=== PATIENT | male | born 1995 | race Caucasian/White ===

== ENCOUNTER 2022-08-03 05:37 | Inpatient (IN) | payer MEDICAID ==
[~2022-08-03] VITALS: Ht 172.7 cm; Wt 70.8 kg
[2022-08-03] MEDS ORDERED: VISCOUS LIDOCAINE 2% 15 ML UDC MM ONE (07:00)
[2022-08-03] MEDS ORDERED: SODIUM CHLORIDE 0.9% 1,000 ML IV ONE (07:00)
[2022-08-03] MEDS ORDERED: ONDANSETRON HCL 4MG/2ML INJ IV ONE (07:00)
[2022-08-03] MEDS ORDERED: ACYCLOVIR 5MG/ML SYR IV ONE (07:15)
[2022-08-03 08:30] LABS: BASOPHILS % 0.5 % (0.0-2.0); EOSINOPHILS % 0.7 % (0.0-5.0); HEMATOCRIT. 52.8 % (42.0-52.0); HEMOGLOBIN. 17.9 g/dL (14.0-18.0); MEAN CORPUSCULAR HEMOGLOBIN 30.6 pg (28.0-32.0); MEAN CORPUSCULAR VOLUME 90.5 fL (80.0-94.0); MEAN PLATELET VOLUME 9.1 fl (7.4-10.4); MONOCYTES % 10.8 % (2.0-8.0); PLATELET 239 x1000/uL (130-400); RED BLOOD CELL COUNT 5.84 mill/uL (4.7-6.1); RED CELL DISTRIBUTION WIDTH 12.9 % (11.6-14.6)
[2022-08-03] MEDS ORDERED: ACYCLOVIR INJ 400 MG in DEXT 5% WATER 100 ML IV SCH (08:30)
[2022-08-03 08:40] LABS: CHLORIDE 104 mEq/L (98-107)
[2022-08-03] MEDS ORDERED: MORPHINE SULFATE 4 MG/ML CPJ (NOT FOR IM USE) IV ONE (11:15)
[2022-08-03 16:00] VITALS: BP 120/76
[2022-08-03] MEDS ORDERED: VISCOUS LIDOCAINE 2% 15 ML UDC MM PRN (16:00)
[2022-08-03] MEDS ORDERED: ONDANSETRON HCL 4MG/2ML INJ IV PRN (16:00)
[2022-08-03] MEDS: PANTOPRAZOLE SODIUM 40 MG/VIAL IV SCH (16:32)
[2022-08-03] MEDS: METHYLPREDNISOLONE SOD SUCC 40 MG/ML VIAL IV SCH (16:33)
[2022-08-03] MEDS: DEXT 5%/0.45% NACL 1000ML 1,000 ML IV SCH (17:04)
[2022-08-03 17:13] VITALS: BP 119/78
[2022-08-03 19:46] LABS: *AMPHETAMINES SCREEN URINE NEGATIVE (NEGATIVE); *BARBITURATES SCREEN URINE NEGATIVE (NEGATIVE); *BENZODIAZEPINES SCREEN URINE NEGATIVE (NEGATIVE); *COCAINE SCREEN URINE NEGATIVE (NEGATIVE); CANNABINOID URINE SCREEN NEGATIVE (NEGATIVE); METHADONE URINE SCREEN NEGATIVE (NEGATIVE); OPIATES URINE SCREEN PRESUMTIVE POSITIVE (NEGATIVE); PHENCYCLIDINE URINE SCREEN NEGATIVE (NEGATIVE)
[2022-08-03 20:00] VITALS: BP 127/64
[2022-08-03] MEDS: AMPICILLIN SOD/SULBACTAM NA 3 G in SODIUM CHLORIDE 0.9% 100 ML IV SCH (20:25)
[2022-08-03] MEDS: ACYCLOVIR INJ 500 MG in DEXT 5% WATER 100 ML IV SCH (21:46)
[2022-08-03 22:00] LABS: VITAMIN B12 SERUM 909 pg/mL (211-911)
[2022-08-04] VITALS: BP 120/68
[2022-08-04] MEDS: KETOROLAC 30MG/ML VIAL IV PRN ×3 (00:16→22:18)
[2022-08-04] MEDS: METHYLPREDNISOLONE SOD SUCC 40 MG/ML VIAL IV SCH ×3 (00:16→16:32)
[2022-08-04] MEDS: AMPICILLIN SOD/SULBACTAM NA 3 G in SODIUM CHLORIDE 0.9% 100 ML IV SCH ×4 (02:55→20:18)
[2022-08-04] MEDS: DEXT 5%/0.45% NACL 1000ML 1,000 ML IV SCH ×3 (02:55→22:19)
[2022-08-04 04:00] VITALS: BP 118/62
[2022-08-04] MEDS: ACYCLOVIR INJ 500 MG in DEXT 5% WATER 100 ML IV SCH ×3 (05:37→22:17)
[2022-08-04 07:52] VITALS: BP 134/65
[2022-08-04] MEDS: PANTOPRAZOLE SODIUM 40 MG/VIAL IV SCH (08:40)
[2022-08-04 11:46] VITALS: BP 112/68
[2022-08-04 16:03] VITALS: BP 110/70
[2022-08-04 20:00] VITALS: BP_SYST 108; BP_SYST 127; BP_DIAS 56; BP_DIAS 78
[2022-08-05] VITALS: BP 95/51
[2022-08-05] MEDS: METHYLPREDNISOLONE SOD SUCC 40 MG/ML VIAL IV SCH ×3 (01:06→16:16)
[2022-08-05] MEDS: AMPICILLIN SOD/SULBACTAM NA 3 G in SODIUM CHLORIDE 0.9% 100 ML IV SCH ×4 (03:32→20:14)
[2022-08-05] MEDS: ACYCLOVIR INJ 500 MG in DEXT 5% WATER 100 ML IV SCH ×3 (05:51→22:17)
[2022-08-05 06:08] LABS: HIV SCREEN 4G Non Reactive (Non Reactive)
[2022-08-05 07:52] VITALS: BP 107/60
[2022-08-05] MEDS: FAMOTIDINE 20MG/2ML VIAL IV SCH ×2 (08:29→22:16)
[2022-08-05] MEDS: DEXT 5%/0.45% NACL 1000ML 1,000 ML IV SCH ×2 (08:39→18:16)
[2022-08-05 11:29] VITALS: BP 109/47
[2022-08-05 14:11] LABS: BASOPHILS % 0.1 % (0.0-2.0); HEMATOCRIT. 45.3 % (42.0-52.0); HEMOGLOBIN. 15.2 g/dL (14.0-18.0); LYMPHOCYTES % 9.6 % (20.0-50.0); MEAN CORPUSCULAR HEMOGLOBIN 30.3 pg (28.0-32.0); MEAN CORPUSCULAR VOLUME 90.3 fL (80.0-94.0); MONOCYTES % 4.2 % (2.0-8.0); NEUTROPHILS % 86.1 % (40.0-76.0); PLATELET 300 x1000/uL (130-400); RED BLOOD CELL COUNT 5.02 mill/uL (4.7-6.1); RED CELL DISTRIBUTION WIDTH 12.7 % (11.6-14.6)
[2022-08-05 14:31] LABS: CHLORIDE 112 mEq/L (98-107)
[2022-08-05 16:01] VITALS: BP 120/61
[2022-08-05 20:00] VITALS: BP 108/62
[2022-08-05] MEDS ORDERED: ZOLPIDEM TARTRATE 5MG TABLET PO PRN (20:30)
[2022-08-06] VITALS: BP 108/62
[2022-08-06] MEDS: AMPICILLIN SOD/SULBACTAM NA 3 G in SODIUM CHLORIDE 0.9% 100 ML IV SCH ×3 (03:41→15:20)
[2022-08-06] MEDS: DEXT 5%/0.45% NACL 1000ML 1,000 ML IV SCH ×2 (03:42→14:00)
[2022-08-06 04:00] VITALS: BP 107/64
[2022-08-06] MEDS: ACYCLOVIR INJ 500 MG in DEXT 5% WATER 100 ML IV SCH ×2 (05:22→14:06)
[2022-08-06] MEDS: FAMOTIDINE 20MG/2ML VIAL IV SCH (08:22)
[2022-08-06] MEDS: METHYLPREDNISOLONE SOD SUCC 40 MG/ML VIAL IV SCH ×2 (08:22)
[2022-08-06] MEDS ORDERED: POTASSIUM CHLORIDE 20MEQ/PACKET PO NR (11:15)
[2022-08-06] MEDS ORDERED: AMOX1TAB16 MT (11:23)
[2022-08-06] MEDS ORDERED: VALA100044 PO (12:38)
[2022-08-06 16:00] VITALS: BP 118/65
== END 2022-08-06 17:36 | disposition home or self-care (01) | DRG 115 ==
LOC: ER 05:37 → 6EST 13:39 → ENRESERV 14:43 → 6EST 15:26
PROVIDERS: ADMIT Internal Medicine; ATTEND Internal Medicine
DX: K12.1 Other forms of stomatitis (principal); B00.1 Herpesviral vesicular dermatitis; J39.2 Other diseases of pharynx; Z20.822 Contact with and (suspected) exposure to COVID-19; K14.0 Glossitis; K05.10 Chronic gingivitis, plaque induced
CPT/HCPCS: 36415; 80048; 80305; 82607; 84145; 85025; 86592; 86694; 86695; 86696; 87389; 87426; 99285; C9113; J0133; J0295; J1885; J2270; J2405; J2920; J3490; J7030; J7050; J7060